=== PATIENT | female | born 1975 | race Caucasian/White ===

== ENCOUNTER 2018-03-13 11:19 | Emergency (ER) | END 2018-03-13 14:17 | disposition home or self-care (01) ==

== ENCOUNTER 2018-04-18 19:55 | Emergency (ER) | END 2018-04-18 22:56 | disposition home or self-care (01) ==

== ENCOUNTER 2018-09-18 22:02 | Emergency (ER) | payer OTHER ==
[~2018-09-18] VITALS: Ht 157.5 cm; Wt 80.4 kg
[~2018-09-18 22:02] MED LIST: CIPR-193 PO; GABA100C14 PO; IBUP-1542 PO; IBUP-1561 PO; denies meds & allergies
[2018-09-18 22:08] VITALS: Ht 157.5 cm; Wt 80.4 kg
[2018-09-19] MEDS ORDERED: SOD CHLORIDE 0.9% 1,000 ML IV ONE (01:30)
--- NOTE | 2018-09-19 01:30 | ERD ---
ER Documentation Chief Complaint Chief Complaint cough x1 month w/ CWP, uti symptoms/flank pain x1 week HPI This is a 43-year-old female who presents emergency department with complaints of cough for about a month, dysuria, bilateral flank pain for about a week. Stated that he went to her primary care physician last May for flank pain, was referred to a manager environmental, had a CT of the abdomen last September with results of nonobstructing calcification in the midpole of the right kidney. LMP: Last night. A2. Denies headache, head injury, loss of consciousness, dizziness, neck pain, neck stiffness, throat pain, difficulty swallowing, difficulty breathing lying flat, shoulder pain, chest pain, back pain, abdominal pain, nausea, vomiting, constipation, diarrhea, urinary symptoms, or possibility being pre gnant, loss of bowel and bladder control, trauma, injury, falls, difficulty walking due to pain, numbness or tingling sensation, calf pain, recent travel, recent major surgery in the last 3 weeks, calf pain, recent long travel, recent exposure to any illness, recent antibiotic use in the last 3 months, fever, chills, seizures. Past medical history: Surgical history: Social: Denies smoking, use of alcoholic beverages, use of illegal drugs. ROS All systems reviewed and are negative except as per history of present illness. Medications Home Meds Active Scripts Cyclobenzaprine Hcl* (Cyclobenzaprine Hcl*) 10 Mg Tablet, 10 MG PO TID PRN for M USCLE SPASMS, #15 TAB Prov:PASILAFRANCISCA BELTRAN F 09/19/18 Benzonatate* (Tessalon Perle*) 100 Mg Capsule, 100 MG PO Q8H PRN for COUGH, #15 CAP Prov:PASILABANRACHELLEAR F 09/19/18 Ibuprofen* (Motrin*) 800 Mg Tab, 800 MG PO Q6H PRN for PAIN AND OR ELEVATED TEMP, #30 TAB Prov:PASILAFRANCISCA BELTRAN F 09/19/18 Cephalexin* (Keflex*) 500 Mg Capsule, 500 MG PO TID for 7 Days, CAP Prov:PASILABANRACHELLEAR F 09/19/18 Gabapentin* (Gabapentin*) 100 Mg Capsule, 100 MG PO TID PRN for PAIN, #30 CAP Prov:MANDI JIMENEZ DO 04/18/18 Ibuprofen* (Ibuprofen*) 600 Mg Tablet, 600 MG PO Q6H PRN for PAIN, #1 TAB Prov:MANDI JIMENEZ DO 04/18/18 Ibuprofen* (Motrin*) 400 Mg Tab, 400 MG PO Q8, #15 TAB Prov:BURTON BAUGH MD 03/13/18 Ciprofloxacin Hcl* (Ciprofloxacin Hcl*) 250 Mg Tablet, 250 MG PO BID for 5 Days, #10 TAB Prov:BURTON BAUGH MD 03/13/18 Reported Medications [denies meds & allergies] No Conflict Check 04/19/13 Allergies Allergies: Coded Allergies: No Known Drug Allergies (Verified Allergy, Unknown, 04/18/18) PMhx/Soc Medical and Surgical Hx: pt denies Surgical Hx History of Surgery: No Hx Miscellaneous Medical Probl: Yes (had kidney infection during ) Hx Alcohol Use: No Hx Substance Use: No Hx Tobacco Use: No Smoking Status: Never smoker Physical Exam Vitals Vital Signs Date Temp Pulse Resp B/P (MAP) Pulse Ox O2 O2 Flow FiO2 Time Delivery Rate 09/19/18 98.1 67 16 117/71 98 Room Air 04:45 (86) 09/18/18 98.5 106 17 148/81 97 22:08 (103) Physical Exam Const: No acute distress Head: Atraumatic Eyes: Normal Conjunctiva ENT: Normal External Ears, Nose and Mouth. Neck: Full range of motion. No meningismus. Resp: Clear to auscultation bilaterally Cardio: Regular rate and rhythm, no murmurs Abd: Soft, non tender, non distended. Normal bowel sounds. Negative Frost sign. Negative [place] sign (heel jar test). Negative psoas sign. Negative Rovsing sign. Able to jump 10 times without developing abdominal pain. Skin: No petechiae or rashes Back: No midline or flank tenderness. No CVA tenderness. Ext: No cyanosis, or edema Neur: Awake and alert. No neurological deficit. Psych: Normal Mood and Affect Result Diagram: 09/19/1813709/19/18137 Results 24 hrs Laboratory Tests Test 09/19/18 01:38 09/19/18 01:53 White Blood Count 11.2 10^3/ul Red Blood Count 4.26 10^6/ul Hemoglobin 11.9 g/dl Hematocrit 36.4 % Mean Corpuscular Volume 85.4 fl Mean Corpuscular Hemoglobin 27.9 pg Mean Corpuscular Hemoglobin Concent 32.7 g/dl Red Cell Distribution Width 13.7 % Platelet Count 239 10^3/UL Mean Platelet Volume 11.2 fl Immature Granulocytes % 0.300 % Neutrophils % 70.5 % Lymphocytes % 17.4 % Monocytes % 5.0 % Eosinophils % 6.5 % Basophils % 0.3 % Nucleated Red Blood Cells % 0.0 /100WBC Immature Granulocytes # 0.030 10^3/ul Neutrophils # 7.9 10^3/ul Lymphocytes # 1.9 10^3/ul Monocytes # 0.6 10^3/ul Eosinophils # 0.7 10^3/ul Basophils # 0.0 10^3/ul Nucleated Red Blood Cells # 0.0 10^3/ul Urine Color YELLOW Urine Clarity SLIGHTLY CLOUDY Urine pH 6.0 Urine Specific [place] 1.011 Urine Ketones NEGATIVE mg/dL Urine Nitrite NEGATIVE mg/dL Urine Bilirubin NEGATIVE mg/dL Urine Urobilinogen NEGATIVE mg/dL Urine Leukocyte Esterase 2+ Ayaz/ul Urine Microscopic RBC > 182 /HPF Urine Microscopic WBC 20 /HPF Urine Squamous Epithelial Cells FEW /HPF Urine Bacteria FEW /HPF Urine Hemoglobin 3+ mg/dL Urine Glucose NEGATIVE mg/dL Urine Total Protein NEGATIVE mg/dl Urine Test NEGATIVE Sodium Level 143 mmol/L Potassium Level 4.0 mmol/L Chloride Level 107 mmol/L Carbon Dioxide Level 28 mmol/L Anion Gap 8 Blood Urea Nitrogen 11 mg/dl Creatinine 0.47 mg/dl Est Glomerular Filtrat Rate mL/min > 60 mL/min Glucose Level 102 mg/dl Calcium Level 9.6 mg/dl Total Bilirubin 0.4 mg/dl Direct Bilirubin 0.00 mg/dl Indirect Bilirubin 0.4 mg/dl Aspartate Amino Transf (AST/SGOT) 21 IU/L Alanine Aminotransferase (ALT/SGPT) 17 IU/L Alkaline Phosphatase 68 IU/L Total Protein 7.8 g/dl Albumin 4.4 g/dl Globulin 3.40 g/dl Albumin/Globulin Ratio 1.29 Lipase 299 U/L POC Beta HCG, Qualitative NEGATIVE Current Medications Medications Dose Sig/Malcolm Start Time Status Last (Trade) Ordered Route PRN Stop Time Admin Dose Reason Admin Sodium 1,000 ml @ Q1H ONCE 09/19/18 DC 09/19/18 Chloride 1,000 mls/hr IV 01:30 01:43 09/19/18 02:29 Guaifenesin 100 mg ONCE ONCE 09/19/18 DC 09/19/18 (Robitussin PO 04:30 04:19 Liquid Cup) 09/19/18 04:31 Procedures/MDM Diagnostic tests: Urine : Negative. Chest x-ray: No active disease. Blood works: Reviewed. No renal failure. Urinalysis: UTI. Treatment: Saline lock. Normal saline IV bolus. Re-evaluation: Denies chest pain. Denies flank pain. Negative Frost sign. Negative [place] sign (heel jar test). Negative psoas sign. Negative Rovsing sign. Able to jump 10 times without developing lower abdomen. Differential diagnosis I have low suspicion for obstructing kidney stone, septic stone, pyelonephritis, pancreatitis, cholecystitis, there is colitis, diverticulitis with abscess, appendicitis, appendicitis with abscess, mesenteric ischemia. Final diagnosis: Flank pain. Cough. UTI. Prescription: Keflex. Motrin. Tessalon Perles. Follow-up with PCP in the next 24-48 hours. Follow-up with your manager environmental in the next 24-48 hours. Come back here in the emergency department for any new symptoms or any worsening symptoms. All questions and concerns were answered. Patient and family members verbalized understanding and agreed with plan of care. Hemodynamically stable on discharge. Departure Diagnosis: Primary Impression: Multiple complaints Additional Impressions: Urinary tract infection Cough Condition: Stable Additional Instructions: Follow-up with PCP in the next 24-48 hours. Follow-up with your manager environmental in the next 24-48 hours. Come back here in the emergency department for any new symptoms or any worsening symptoms. FRANCISCA RIVERA Sep 19, 2018 01:30
[2018-09-19] MEDS ORDERED: CEPH-443 PO (04:04)
[2018-09-19] MEDS ORDERED: CYCL10TA7 PO (04:05)
[2018-09-19] MEDS ORDERED: BENZ-6 PO (04:05)
[2018-09-19] MEDS ORDERED: IBUP800T48 PO (04:05)
[2018-09-19] MEDS ORDERED: GUAIFENESIN 20 MG/ML 5ML CUP PO ONE (04:30)
[2018-09-19 04:45] VITALS: BP 117/71; PULSE 67; RESP 16
== END 2018-09-19 04:45 | disposition home or self-care (01) ==
LOC: FTE 22:02
DX: N39.0 Urinary tract infection, site not specified (principal)
CPT/HCPCS: 71046; 80053; 81001; 81025; 83690; 84703; 85025; 87086; 96360; J7030; Z7502; Z7610